=== PATIENT | male | born 1995 | race Caucasian/White ===

== ENCOUNTER 2017-03-05 16:08 | Emergency (ER) ==
[2017-03-05 16:15] VITALS: BP 121/77; TEMP 98.6; BMI 19.5
--- NOTE | 2017-03-05 16:44 | DI ---
EXAM: Right hand three-view HISTORY: Pain COMPARISON: None FINDINGS: The bones are normal. The joints are normal. No focal soft tissue abnormality. IMPERSSION: Normal examination.
--- NOTE | 2017-03-05 17:05 | ED.PDOC ---
General ED Provider: Dr. SOPHIA CASTILLO Chief Complaint: Hand Pain/Injury Stated Complaint: HAND PAIN Time Seen by Physician: 16:10 Information Source: Patient Exam Limitations: No limitations Primary Care Provider: BRENDA RINCON Nursing and Triage Documentation Reviewed and Agree: Yes Musculoskeletal Complaint Exam - Hand/Wrist Complaint/Exam Location of Pain: Reports: Right, Hand Mechanism of Injury: Reports: No known trauma Onset/Duration: 1 WEEK PUNCHED A WALL Symptoms Are: Still present Initial Severity: Mild Current Severity: Mild Character: Reports: Dull, Aching Alleviating: Reports: None Aggravating: Reports: None Associated Signs and Symptoms: Denies: Swelling, Redness, Bruising, Fever, Weakness, Numbness, Tingling Related History: Reports: Similar episode Dominant Hand: Right Related Surgical History: Reports: None Compartment Syndrome Risk Factors: Present: Pain Differential Diagnoses: Closed Fracture Review of Systems - Review Of Systems Constitutional: Reports: No symptoms Eyes: Reports: No symptoms Ears, Nose, Mouth, Throat: Reports: No symptoms Respiratory: Reports: No symptoms Cardiac: Reports: No symptoms GI: Reports: No symptoms : Reports: No symptoms Musculoskeletal: Reports: Joint pain Skin: Reports: No symptoms Neurological: Reports: No symptoms Endocrine: Reports: No symptoms Hematologic/Lymphatic: Reports: No symptoms All Other Systems: Reviewed and Negative Past Medical History - Past Medical History Previously Healthy: Yes Endocrine: Reports: None Cardiovascular: Reports: None Respiratory: Reports: None Hematological: Reports: None Gastrointestinal: Reports: None Genitourinary: Reports: None Neuro/Psych: Reports: None Musculoskeletal: Reports: None Cancer: Reports: None - Surgical History General Surgical History: Reports: None - Family History Family History: Reports: None - Social History Smoking Status: Current every day smoker, Light tobacco smoker Hx Substance Use: No Alcohol Screening: Occasionally Physical Exam - Physical Exam Appearance: Well-appearing, No pain distress, Well-nourished Eyes: [place], EOMI, Conjunctiva clear ENT: Ears normal, Nose normal, Oropharynx normal Respiratory: Airway patent, Breath sounds clear, Breath sounds equal, Respirations nonlabored Cardiovascular: RRR, Pulses normal, No rub, No murmur GI/: Soft, Nontender, No masses, Bowel sounds normal, No Organomegaly Musculoskeletal: Normal strength, ROM intact, No edema, No calf tenderness Skin: Warm, Dry, Normal color Neurological: Sensation intact, Motor intact, Reflexes intact, Cranial nerves intact, Alert, Oriented Psychiatric: Affect appropriate, Mood appropriate Interpretation - Radiology Interpretation Radiology Interpretation By: Radiologist Radiology Results: Negative Critical Care Note - Critical Care Note Total Time (mins): 0 Course - Course Orders, Labs, Meds: Orders Category Date Time Status HAND, RIGHT 3 VIEWS Stat RADS 03/05/17 16:25 Ordered Vital Signs: Temp Pulse Resp BP Pulse Ox 03/05/17 16:09 98.6 F 72 20 121/77 98 Departure - Departure Time of Disposition: 17:04 Disposition: HOME SELF-CARE Discharge Problem: Hand pain Instructions: Arthralgia (ED) Condition: Good Pt referred to PMD for follow-up: Yes Additional Instructions: Please call your Family Physician as soon as possible to schedule a follow-up appointment. Allergies/Adverse Reactions: Allergies Penicillins Adverse Reaction (Verified 03/05/17 16:17) Sulfa (Sulfonamide Antibiotics) Adverse Reaction (Verified 03/05/17 16:17) Home Medications: Ambulatory Orders Lamotrigine [Lamictal] 100 mg PO DAILY 03/05/17 Venlafaxine HCl [Effexor Xr] 50 mg PO TID 03/05/17 Disposition Discussed With: Patient
== END 2017-03-05 17:12 | disposition home or self-care (01) ==
LOC: ED 16:08
DX: M79.641 Pain in right hand (principal); W22.8XXA Striking against or struck by other objects, initial encounter; F17.210 Nicotine dependence, cigarettes, uncomplicated
CPT/HCPCS: 99282

== ENCOUNTER 2017-08-24 22:20 | Outpatient (CLI) | END 2017-08-24 22:21 | disposition left against medical advice (07) | LOC: AMBL 22:20 | PROVIDERS: ATTEND Family Medicine | DX: S50.312A Abrasion of left elbow, initial encounter (principal); V09.20XA Pedestrian injured in traffic accident involving unspecified motor vehicles, initial encounter ==